=== PATIENT | female | born 1970 | race Asian ===

== ENCOUNTER 2016-07-14 05:06 | Emergency (ER) | payer BC, OTHER ==
[~2016-07-14] VITALS: Ht 160 cm; Wt 68.0 kg
[2016-07-14] MEDS ORDERED: ALBU8HFA IH (05:13)
[2016-07-14] MEDS ORDERED: ALBUTEROL SULFATE 2.5 MG/0.5 ML NEB SOLUTION NEB ONE (06:15)
[2016-07-14] MEDS ORDERED: PredniSONE 20 MG TABLET PO ONE (06:15)
[2016-07-14] MEDS ORDERED: IPRATROPIUM BROMIDE 0.5 MG/2.5 ML NEB SOLUTION NEB ONE (06:15)
[2016-07-14] MEDS ORDERED: 0.9% SODIUM CHLORIDE 5 ML NEB SOLUTION NEB ONE (06:25)
[2016-07-14 06:45] VITALS: BP 105/65
== END 2016-07-14 07:15 | disposition home or self-care (01) ==
LOC: EMS 05:07
DX: J45.909 Unspecified asthma, uncomplicated (principal); Z88.6 Allergy status to analgesic agent
CPT/HCPCS: 71010; 94640; 99283; J7512; J7613

== ENCOUNTER 2016-07-24 15:15 | Emergency (ER) | payer OTHER ==
[~2016-07-24] VITALS: Ht 160 cm; Wt 70.0 kg
[~2016-07-24 15:15] MED LIST: ALBU8HFA IH
[2016-07-24] MEDS ORDERED: TRAM50TA4 PO (15:46)
[2016-07-24 17:51] VITALS: BP 121/66
[2016-07-24] MEDS ORDERED: TraMADol HCL 50 MG TABLET PO ONE (19:00)
[2016-07-24] MEDS ORDERED: BENZONATATE 100 MG CAPSULE PO ONE (19:00)
== END 2016-07-24 19:00 | disposition home or self-care (01) ==
LOC: EMS 15:16
DX: S29.011A Strain of muscle and tendon of front wall of thorax, initial encounter (principal); J45.909 Unspecified asthma, uncomplicated; Z88.6 Allergy status to analgesic agent; X58.XXXA Exposure to other specified factors, initial encounter; Y93.89 Activity, other specified; Y92.89 Other specified places as the place of occurrence of the external cause; Y99.8 Other external cause status
CPT/HCPCS: 71020; 93005; 99284

== ENCOUNTER 2018-10-17 23:00 | Emergency (ER) | payer OTHER ==
[~2018-10-17] VITALS: Ht 160 cm; Wt 72.7 kg
[~2018-10-17 23:00] MED LIST changes: +TRAM50TA4 PO
[2018-10-18 00:28] LABS: BASOPHILS % (AUTO) 0.5 % (0.0-2.0); EOSINOPHILS % (AUTO) 3.9 % (1.0-6.0); HEMATOCRIT 41.7 % (36-46); HEMOGLOBIN 14.1 g/dL (12.0-16.0); LYMPHOCYTES # (AUTO) 2.3 K/uL (1.0-4.8); LYMPHOCYTES % (AUTO) 17.7 % (22.0-44.0); MEAN CORPUSCULAR HEMOGLOBIN 30.7 pg (26.0-34.0); MEAN CORPUSCULAR HGB CONC 33.9 G/dL (31.0-37.0); MEAN CORPUSCULAR VOLUME 91 fL (80-100); MONOCYTES # (AUTO) 0.9 K/uL (0.1-1.0); NEUTROPHILS # (AUTO) 9.3 K/uL (1.8-7.7); NEUTROPHILS % (AUTO) 70.9 % (40.0-70.0); PLATELET COUNT (AUTO) 276 K/uL (150-450)
[2018-10-18 00:49] LABS: ALANINE AMINOTRANSFERASE 50 U/L (12-78); ALBUMIN 4.3 g/dL (3.4-5.0); ALKALINE PHOSPHATASE 57 U/L (46-116); ANION GAP 12 mmol/L (8-16); ASPARTATE AMINOTRANSFERASE 21 U/L (15-37); BILIRUBIN,TOTAL 0.6 mg/dL (0.1-1.0); CALCIUM, TOTAL 9.1 mg/dL (8.8-10.5); CARBON DIOXIDE 24 mmol/L (22-29); CHLORIDE 106 mmol/L (98-107); CREATININE 0.77 mg/dL (0.60-1.30); GLOMERULAR FILTR. RATE CALC > 60 mL/min (>60); GLUCOSE,RANDOM 103 mg/dL (70-110); HCG,QUANTITATIVE < 1 mIU/mL (0-6); SODIUM SERUM 142 mmol/L (136-145); TOTAL PROTEIN, SERUM 7.7 g/dL (6.4-8.2); UREA NITROGEN, BLOOD 9 mg/dL (7-18)
[2018-10-18 01:44] VITALS: BP 126/74
== END 2018-10-18 01:57 | disposition home or self-care (01) ==
LOC: EMS 23:01
DX: J02.9 Acute pharyngitis, unspecified (principal); J45.909 Unspecified asthma, uncomplicated; Z88.6 Allergy status to analgesic agent
CPT/HCPCS: 93005